=== PATIENT | male | born 1960 | race Hispanic/Latino ===

== ENCOUNTER 2022-01-04 12:17 | Emergency (ER) | payer OTHER ==
[2022-01-04 13:07] VITALS: BP 150/82
--- NOTE | 2022-01-04 13:52 | Emergency Department Report ---
HPI - General Chief Complaint: Allergic Reaction - HPI HPI: 61-year-old male presents to the ED after allergic reaction to the bee sting x 7 hours ago. He states that he uses EpiPen. He denies any shortness of breath or chest pain at present time. Patient denies any nausea or vomiting at present time. He denies any chest pain at present time. Patient is alert and oriented x3. No acute distress noted. No ill appearance noted. ED Past Medical Hx - Medications Home Medications: Home Medications Medication Instructions Recorded Confirmed Last Taken Type EPINEPHrine [Epipen 2-Dayo] 0.3 mg IM ONCE 1 Days #1 pen 01/04/22 Unknown Rx ED Review of Systems ROS: Stated complaint: BEE STING Other details as noted in HPI Constitutional: denies: chills, fever Eyes: denies: eye pain, eye discharge, vision change ENT: denies: ear pain, throat pain Respiratory: denies: cough, shortness of breath, wheezing Cardiovascular: denies: chest pain, palpitations Endocrine: no symptoms reported Gastrointestinal: denies: abdominal pain, nausea, diarrhea Genitourinary: denies: urgency, dysuria Musculoskeletal: denies: back pain, joint swelling, arthralgia Skin: denies: rash, lesions Neurological: denies: headache, weakness, paresthesias Psychiatric: denies: anxiety, depression Hematological/Lymphatic: denies: easy bleeding, easy bruising Physical Exam - Physical Exam Vital Signs: Vital Signs 01/04/22 13:04 Temperature 99.8 F H Pulse Rate 84 Respiratory 18 Rate Blood Pressure 150/82 [Left] O2 Sat by Pulse 94 Oximetry General: - General Limitations: No Limitations General appearance: alert, in no apparent distress - Head Head exam: Present: atraumatic, normocephalic - Eye Eye exam: Present: normal appearance - ENT ENT exam: Present: mucous membranes moist - Expanded ENT Exam Expanded Throat exam: Positive: tonsillar erythema - Neck Neck exam: Present: normal inspection - Respiratory Respiratory exam: Present: normal lung sounds bilaterally. Absent: respiratory distress - Cardiovascular Cardiovascular Exam: Present: regular rate, normal rhythm. Absent: systolic murmur, diastolic murmur, rubs, gallop - GI/Abdominal GI/Abdominal exam: Present: soft, normal bowel sounds - Extremities Exam Extremities exam: Present: normal inspection - Back Exam Back exam: Present: normal inspection - Neurological Exam Neurological exam: Present: alert, oriented X3 - Psychiatric Psychiatric exam: Present: normal affect, normal mood - Skin Skin exam: Present: warm, dry, intact, normal color. Absent: rash ED Course Vital Signs 01/04/22 13:04 Temperature 99.8 F H Pulse Rate 84 Respiratory 18 Rate Blood Pressure 150/82 [Left] O2 Sat by Pulse 94 Oximetry ED Medical Decision Making - Medical Decision Making 61-year-old male presents to the ED after allergic reaction to the bee sting x 7 hours ago. He states that he uses EpiPen. He denies any shortness of breath or chest pain at present time. Patient denies any nausea or vomiting at present time. He denies any chest pain at present time. Patient is alert and oriented x3. No acute distress noted. No ill appearance noted. Physical examination is unremarkable Rechecked the patient is resting quietly , comfortable and feeling better. I discussed the results of diagnostic study, my clinical impression and the plan for further treatment with the patient. Patient agrees with plan and discharge at this present time. All question addressed. I have given the patient instruction regarding a diagnosis ,expectation ,follow- up and return precaution. I explained to the patient that emergent condition may arise and to return to the ED for new worsen and any new persisting condition. I have explained the importance of following up with the primary care physician or referral physician listed below has instructed. The patient verbalized understanding of discharge instruction. Critical care attestation.: If time is entered above; I have spent that time in minutes in the direct care of this critically ill patient, excluding procedure time. ED Disposition Clinical Impression: Allergic reaction Qualifiers: Encounter type: initial encounter Qualified Code(s): T78.40XA - Allergy, unspecified, initial encounter Disposition: HOME / SELF CARE / HOMELESS Is pt being admited?: No Does the pt Need Aspirin: No Condition: Stable Instructions: How to Use an Auto-Injector Pen Additional Instructions: Return to ED for any worsening symptom Prescriptions: EPINEPHrine [Epipen 2-Dayo] 0.3 mg IM ONCE 1 Days #1 pen Referrals: [facility] [Other] - 3-5 Days Forms: Work/School Release Form(ED) Time of Disposition: 13:54
== END 2022-01-04 14:00 | disposition home or self-care (01) ==
LOC: ED 12:17
DX: T63.441A Toxic effect of venom of bees, accidental (unintentional), initial encounter (principal); Y92.89 Other specified places as the place of occurrence of the external cause
CPT/HCPCS: 99282